=== PATIENT | male | born 1990 | race Two or more races ===

== ENCOUNTER 2022-07-13 15:09 | Emergency (ER) | payer MEDICAID ==
[~2022-07-13] VITALS: Ht 180.3 cm; Wt 86.4 kg
[2022-07-13 17:57] VITALS: BP 131/79
== END 2022-07-13 17:59 ==
LOC: EMS 15:09
DX: F19.129 Other psychoactive substance abuse with intoxication, unspecified (principal); F10.20 Alcohol dependence, uncomplicated; F12.90 Cannabis use, unspecified, uncomplicated; F15.10 Other stimulant abuse, uncomplicated; F17.210 Nicotine dependence, cigarettes, uncomplicated
CPT/HCPCS: 99283

== ENCOUNTER 2022-07-20 00:29 | Emergency (ER) | payer MEDICAID ==
[~2022-07-20] VITALS: Ht 180.3 cm; Wt 81.8 kg
[2022-07-20 00:50] VITALS: BP 141/76
== END 2022-07-20 01:25 | disposition left against medical advice (07) ==
LOC: EMS 00:29
DX: T50.901A Poisoning by unspecified drugs, medicaments and biological substances, accidental (unintentional), initial encounter (principal); F17.210 Nicotine dependence, cigarettes, uncomplicated; F12.90 Cannabis use, unspecified, uncomplicated; F15.90 Other stimulant use, unspecified, uncomplicated; F11.90 Opioid use, unspecified, uncomplicated; Z59.00 Homelessness unspecified; Y92.830 Public park as the place of occurrence of the external cause
CPT/HCPCS: 99283

== ENCOUNTER 2023-02-13 16:53 | Emergency (ER) | payer MEDICAID ==
[~2023-02-13] VITALS: Ht 170.2 cm; Wt 81.8 kg
[2023-02-13 17:00] VITALS: BP 142/80
== END 2023-02-13 17:52 | disposition left against medical advice (07) ==
LOC: EMS 16:54
DX: S50.312A Abrasion of left elbow, initial encounter (principal); F15.10 Other stimulant abuse, uncomplicated; F17.210 Nicotine dependence, cigarettes, uncomplicated; F12.90 Cannabis use, unspecified, uncomplicated; F11.90 Opioid use, unspecified, uncomplicated; Z59.00 Homelessness unspecified; X58.XXXA Exposure to other specified factors, initial encounter; Y93.89 Activity, other specified; Y92.89 Other specified places as the place of occurrence of the external cause; Y99.8 Other external cause status
CPT/HCPCS: 99283